=== PATIENT | male | born 1960 | race Caucasian/White ===

== ENCOUNTER 2023-08-08 06:19 | Inpatient (IN) | payer BC, MEDICARE, SELFPAY ==
[2023-08-08] VITALS (12 sets, daily range): BP systolic 79–127; BP diastolic 39–80; BMI 36.8
[2023-08-08] MEDS: NSS 500 IV (06:43)
--- NOTE | 2023-08-08 06:56 | W.SUR.PREOP ---
Pre-Operative Surgical Note
-
I have examined this patient prior to the performance of the scheduled procedure.
The patient's condition is unchanged from the time of the current History and
Physical and the patient is able to undergo the scheduled procedure.
[2023-08-08] MEDS: PERIDEX 0.12% ORAL RINSE 15 ML PO (07:09)
[2023-08-08] MEDS: BACTROBAN 2% OINTMENT 1 APPLIC NASAL (07:09)
[2023-08-08 07:17] LABS: Hematocrit 42.5 % (39.0-52.0); Hemoglobin 14.8 g/dL (13.0-18.0); Mean Corp Hgb Conc. 34.8 g/dL (33.0-37.0); Mean Corpuscular Hgb 31.4 pg (27.0-31.0); Mean Corpuscular Volume 90.2 fL (80.0-94.0); Mean Platelet Volume 9.2 fL (7.4-10.4); Platelet Count 160 10^3/uL (130-400); Red Blood Cell Count 4.71 10^6/uL (4.70-6.10); Red Cell Dist. Width 12.5 % (11.5-14.5); White Blood Cell Count 7.4 10^3/uL (4.8-10.8)
[2023-08-08 07:19] LABS: INR 1.04; PT 13.4 Sec (11.4-14.6)
[2023-08-08 07:20] LABS: APTT 25.6 Sec (23.4-35.0); Blood Urea Nitrogen 27 mg/dl (9-20); Calcium 9.6 mg/dl (8.4-10.2); Carbon Dioxide 24 mmol/L (22-30); Chloride 109 mmol/L (98-107); Estimated Creatinine Clearance > 125 ml/min; Glucose 189 mg/dl (70-99); Potassium 4.3 mmol/L (3.5-5.1); Sodium 138 mmol/L (135-145); eGFR > 60.00
--- NOTE | 2023-08-08 10:04 | W.SUR.POST ---
Surgical Immediate Post Op
Note
Pre Op Diagnosis: Carotid stenosis
Post Op Diagnosis: Carotid stenosis
Procedure Performed: Left carotid endarterectomy with bovine pericardial patch angioplasty and EEG/SSEP monitoring
Primary Surgeon: Jorge A Sneed MD
printing assistant: PHI Mei
Anesthesia: GETA
Estimated Blood Loss: 100 mL
Fluids: See anesthesia flowsheet
Drains/Shunts: N/A
Specimens/Cultures: Left carotid plaque
Doppler/Duplex/Angio (Y/N): Y
Complications: None
Operative Findings: Upon waking from anesthesia could move bilateral upper extremities and lower extremities to command and spontaneously
--- NOTE | 2023-08-08 10:06 | W.PV.INTER ---
VPI Note
Pre Admission Note
Functional Status: Full
Ambulation: Ambulate Independently
Pre Op Medications
Pre Op ASA: Yes
Pre Op Statin: Yes
Pre Op MIKAYLA Inhibitor/ARB: No
Pre Op P2y12 Antagonist: Clopidogrel
Pre Op Beta Blockers: Pre Op 1-30 Days
Pre Op Chronic Anticoagulant: None
Pre Op Cilostazol: No
Post Op Medications
Post Op ASA: Yes
Post Op Statin: Yes
Post Op MIKAYLA Inhibitor/ARB: No
Post Op P2y12 Antagonist: Clopidogrel
Post Op Beta Blockers: Chronic > 30 Days
Post Op Chronic Anticoagulant: None
Post Op Cilostazol: No
Modified [place]
Pre Op: 0
Post Op: 0
[2023-08-08 10:33] LABS: Glucose - Point of Care 194 mg/dl (70-99)
[2023-08-08] MEDS: NSS 1000 IV ×2 (10:43→21:30)
[2023-08-08] MEDS: NEO-SYNEPHRINE 250 IV (10:43)
[2023-08-08 10:51] LABS: Hematocrit 39.5 % (39.0-52.0); Hemoglobin 13.7 g/dL (13.0-18.0); Mean Corp Hgb Conc. 34.7 g/dL (33.0-37.0); Mean Corpuscular Hgb 31.5 pg (27.0-31.0); Mean Corpuscular Volume 90.8 fL (80.0-94.0); Mean Platelet Volume 9.1 fL (7.4-10.4); Platelet Count 154 10^3/uL (130-400); Red Blood Cell Count 4.35 10^6/uL (4.70-6.10); Red Cell Dist. Width 12.6 % (11.5-14.5)
[2023-08-08 11:00] LABS: Blood Urea Nitrogen 22 mg/dl (9-20); Estimated Creatinine Clearance > 125 ml/min; Glucose 212 mg/dl (70-99); Sodium 136 mmol/L (135-145); eGFR > 60.00
[2023-08-08 11:01] LABS: Calcium 8.5 mg/dl (8.4-10.2); Carbon Dioxide 23 mmol/L (22-30); Chloride 110 mmol/L (98-107); Potassium 4.2 mmol/L (3.5-5.1)
[2023-08-08 12:24] LABS: Glucose - Point of Care 236 mg/dl (70-99)
[2023-08-08] MEDS: NOVOLOG FLEXPEN-LOW RESISTANCE 2 UNITS SC ×2 (13:17→16:56)
--- NOTE | 2023-08-08 13:36 | CON.INTV ---
Consultation
Consultation Request
Date/Time Consultation Requested: 08/08/2023
Date/Time Consultation Performed: 08/08/2023
Requesting Provider: Dr. Sneed
Performing Provider: Dr. Dario Asencio
Reason for Consultation: Status post left carotid endarterectomy.
Medical History
-
History of Present Illness:
[age]-year-old man who was diagnosed with left carotic stenosis. It was symptomatic. He was deemed candidate for revascularization. Admitted to the hospital and he underwent left carotic endarterectomy without complication.
In the critical care unit for postoperative management.
Past Medical History
Past Medical History: Other (See assessment and plan section)
Social History
Tobacco: Former Smoker
Alcohol: None
Drug: None
Living: With Family
Family History
Family History: Reviewed & Not Pertinent
Allergies / Home Medications
Allergies
Allergy/AdvReac Type Severity Reaction Status Date / Time
No Known Allergies Allergy Unverified 08/07/23 11:39
Home Medications
�Medication �Instructions �Recorded �Confirmed �Last Taken �Type
Fish Oil 1 cap PO DAILY 08/07/23 08/08/23 08/08/23 05:00 History
Lipitor 40 mg PO DAILY 08/07/23 08/08/23 08/08/23 05:00 History
clopidogrel 75 mg tablet (Plavix) 75 mg PO DAILY 08/07/23 08/08/23 08/08/23 05:00 History
empagliflozin 10 mg tablet 10 mg PO DAILY 08/07/23 08/08/23 08/05/23 08:00 History
(Jardiance)
lisinopril 10 mg tablet 10 mg PO DAILY 08/07/23 08/08/23 08/08/23 05:00 History
metformin 500 mg tablet 500 mg PO BID 08/07/23 08/08/23 08/08/23 05:00 History
metoprolol succinate 25 mg 25 mg PO DAILY 08/07/23 08/08/23 08/08/23 05:00 History
tablet,extended release 24 hr
aspirin 81 mg tablet 81 mg PO DAILY 08/08/23 08/08/23 08/08/23 05:00 History
cholecalciferol (vitamin D3) 25 25 mcg PO DAILY 08/08/23 08/08/23 08/08/23 05:00 History
mcg (1,000 unit) chewable tablet
(Vitamin D3)
Review of Systems
-
History Source: Patient
All other systems: Negative unless noted
Vitals / Labs / Diagnostic Testing
Vital Signs
Temp Pulse Resp BP Pulse Ox
98.3 F 61 24 109/69 96
08/08/23 12:31 08/08/23 13:30 08/08/23 13:30 08/08/23 12:56 08/08/23 13:30
Lab Data
08/08/23 10:40
08/08/23 10:40
Laboratory Results
08/08/23
06:33
PT 13.4
INR 1.04
APTT 25.6
Diagnostic Testing:
Physical Exam
-
HEENT: Normocephalic and Other (Cervical incision is intact. No stridor. No hematoma.)
Cardiovascular: S1/S2
Respiratory: Clear and Non-Labored Respirations
GI: Soft and Non Distended
Neurology: Awake and Alert
Skin: Warm
General: Respiratory Distress (n)
Assessment
-
Status post Left carotid endarterectomy with bovine pericardial patch angioplasty and EEG/SSEP monitoring-08/08/2023-Dr. Sneed
Conditions present prior admission:
Hypertension type 2 diabetes
TIA
Hyperlipidemia
Former smoker-quit at age 48. Smoked from age 16 to age 48. On average 1-2 packs/day
Assessment and plan:
Postoperative surgical intensive care unit monitoring
Supplemental oxygen as needed
Incentive spirometry
Aspiration precautions
Neuro and vascular checks per protocol
Vascular surgery following-correspondence and operative notes reviewed
Antiplatelet
Monitor blood pressure
Arterial line in place
Restart outpatient blood pressure medications.
Cardene drip if needed
Follow hemoglobin
Complaining of left antecubital pain on peripheral line. No obvious hematoma
Will discontinue right arm peripheral line.
Switch IV fluids to the left arm.
Follow blood sugars
Insulin supplementation as needed
Restart outpatient medication
Advance diet as tolerated
Gentle IV fluids
DVT prophylaxis
Early nutrition
Early mobilization
--- NOTE | 2023-08-08 13:38 | PTCARENOTE ---
Received pt from PACU s/p L CEA. Neuro checks as ordered WNL. Phenylephrine stopped upon arrival. L neck CDI with mild erythema, approximated with dermabond. NSS infusing. a-line zeroed and leveled. Plan of care discussed.
--- NOTE | 2023-08-08 13:47 | SUR.PHASEI ---
late charting - patient received easily arousable, neuro intact despite low BP, treated by FIELD UNDERWRITER and BP recovered nicely - BP dropping again and meka gtt started and held at 20 mcg, vss, then stable, c/o chest burning, ECG completed, Dr Antonio to
view. no treatement.
--- NOTE | 2023-08-08 14:13 | OR.RPT ---
Operative Report
Operative Report
PROCEDURE DATE: 08/08/2023
Preoperative diagnosis: Symptomatic severe left carotid artery stenosis.
Postoperative diagnosis: Same
Procedure: Left carotid endarterectomy with bovine pericardial patch angioplasty and intraoperative EEG/SSEP monitoring.
Surgeon: Naren
Resource Paraprofessional: Vannessa, required for all aspects of procedure including traction/countertraction, following of suture line, assistance with closure.
Complications: None
Anesthesia: General
Indications for procedure:
High-grade mixed plaque left carotid stenosis. Symptomatic. Recent TIA event with right upper extremity weakness. In addition had left eye potential amaurosis type findings. Risk/benefit/alternatives of expeditious revascularization were also
discussed. Patient understood all wish to proceed.
Description of procedure:
Patient was identified brought to the operating room placed on the table in supine position. After the adequate administration of anesthesia and perioperative antibiotics he was prepped and draped in the standard surgical fashion. A standard
preoperative timeout was undertaken and everybody was in agreement the plan. A standard longitudinal incision was made in the left neck that was carried through the skin subcutaneous tissue. Using the electrocautery dissection was carried through
the platysma muscle layer and then alongside the anterior medial border of the sternocleidomastoid muscle. Then using a combination of sharp dissection with the Metzenbaum scissors and electrocautery I dissected along the anterior medial border of
the internal jugular vein. A small common facial vein branch was ligated between silk ties and then divided. I then deepened my retraction. The common carotid artery was fairly deep, but was identified and carefully dissected away from the
surrounding structures take great care to avoid any injury to the structures. A vessel loop was passed around it which was double looped, but not yet tightened. Note the vagus nerve was protected from harm's way. I then continued my dissection up
the common carotid artery to the bulb staying only on the anterior surface of the carotid artery. Then I carried the dissection up to the internal carotid artery and then to the distal internal carotid artery. I identified where it was soft and
carefully circumferentially dissected the internal carotid artery with minimal mobilization and passed a vessel loop around it. Note the hypoglossal nerve was not directly visualized and was felt to be more cephalad. The patient was given an
appropriate dose of heparin 10,000 units. Next I dissected the anterior surface of the external carotid artery and superior thyroid branches. These were then carefully dissected on their anterior surfaces with minimal mobilization. After 3
minutes of heparin circulation time and confirmation of optimization of the blood pressure with my anesthesiology colleagues, I clamped the distal internal carotid artery where it was soft. There was no immediate EEG or SSEP changes. After 1
minute of test clamp time there was no changes noted. Therefore at this point, I completed circumferential dissection of the external carotid and superior thyroid branches, and Vesseloops were passed and double looped and tightened. Next, the
common carotid artery was clamped where it was soft proximally. An arteriotomy was made on the common carotid artery with an 11 blade and extended using a Baldwin scissor. I extended the arteriotomy onto the mid to distal internal carotid artery.
There was mixed plaque as noted on CT scan that resulted in significant stenosis. It was a somewhat friable plaque. Appeared to be the source of his recent TIA.. A Orlando was then used to endarterectomized the plaque. An endarterectomy plane was
created, and the plaque was then endarterectomized. Distally I feathered the plaque out to a nice clean endpoint in the distal internal carotid artery. Next I endarterectomized the intima back to somewhat normal intima in the common carotid
artery, and the intima was cut flush there. I then grasped the plaque and everted plaque out of the origin of the external carotid artery. The plaque was then sent off for specimen. The origin of the external carotid artery was carefully
visualized and any fine debris were removed with fine forceps. Proximal and distal endpoints were then carefully inspected. The distal endpoint appeared reasonable. Proximal endpoint continued to have friable plaque debris/intima. I therefore
had to dissect more proximally on the common carotid artery, and shift my clamp more proximally. I extended the arteriotomy more proximally as well. I then was able to get to a kiln cleaner endpoint on the common carotid artery. The intima at the
proximal and distal endpoints were tacked with 7-0 Prolene suture interrupted. Next any fine debris were removed throughout the endarterectomy bed with fine forceps. I then flushed heparinized saline. I was very satisfied. Then, I used a bovine
pericardial patch to sew a patch angioplasty with a running 6-0 Prolene suture. Prior to completing and tying down my suture line, I backbled sequentially each branch and reclamped each branch prior to unclamping the next branch. I then irrigated
with heparinized saline. Then I completed and tied down my suture line. We then restored flow in the common carotid and external carotid arteries. Finally, we released flow in the internal carotid artery. There was excellent pulsatile flow in
all 3 vessels. There was an excellent Doppler signal in the internal carotid artery distal to the patch with a good normal low resistance Doppler signal. There was a good Doppler signal in the external carotid artery as well. 6-0 Prolene
[id number] sutures were placed along any bleeding points along the suture line. Protamine was given to reverse the heparin. Hemostasis was completely achieved. We then irrigated and confirmed full hemostasis. I then closed in layers with
2-0 Vicryl layer to reapproximate the sternocleidomastoid muscle, followed by 3-0 Vicryl platysma muscle running layer, followed by 4 Monocryl subcuticular stitch. Dermabond was applied. The patient tolerated procedure well. He awoke moving all
extremities to command with tongue in the midline.
[2023-08-08 14:48] LABS: Troponin I < 0.012 ng/ml
--- NOTE | 2023-08-08 16:46 | PTCARENOTE ---
VSS with phenylephrine off. Neuro checks WNL. Continues to ice incision intermittently.
[2023-08-08 16:51] LABS: Glucose - Point of Care 221 mg/dl (70-99)
[2023-08-08 20:22] LABS: Troponin I < 0.012 ng/ml
[2023-08-08 21:25] LABS: Glucose - Point of Care 226 mg/dl (70-99)
[2023-08-08] MEDS: HEPARIN 5000 UNITS SC (21:30)
--- NOTE | 2023-08-08 21:43 | PTCARENOTE ---
Pt resting comfortably with no c/o pain. Ice pack PRN left neck. Pt continuously trying to get up to side of bed without assistance despite education. Bed alarm on. Pt alert/oriented X3, PERRLA 3, SCHROEDER 08/11. Will monitor.
[2023-08-08] MEDS: NOVOLOG FLEXPEN 5 UNITS SC (21:54)
[2023-08-09 04:22] LABS: Hematocrit 34.1 % (39.0-52.0); Hemoglobin 11.9 g/dL (13.0-18.0); Mean Corp Hgb Conc. 34.9 g/dL (33.0-37.0); Mean Corpuscular Hgb 31.8 pg (27.0-31.0); Mean Corpuscular Volume 91.2 fL (80.0-94.0); Mean Platelet Volume 9.6 fL (7.4-10.4); Platelet Count 128 10^3/uL (130-400); Red Blood Cell Count 3.74 10^6/uL (4.70-6.10); Red Cell Dist. Width 12.7 % (11.5-14.5); White Blood Cell Count 10.5 10^3/uL (4.8-10.8)
[2023-08-09 04:34] LABS: INR 1.15; PT 14.8 Sec (11.4-14.6)
[2023-08-09 04:35] LABS: APTT 25.3 Sec (23.4-35.0)
[2023-08-09 04:52] LABS: Blood Urea Nitrogen 24 mg/dl (9-20); Calcium 8.1 mg/dl (8.4-10.2); Carbon Dioxide 20 mmol/L (22-30); Chloride 110 mmol/L (98-107); Estimated Creatinine Clearance > 125 ml/min; Glucose 173 mg/dl (70-99); Potassium 3.7 mmol/L (3.5-5.1); Sodium 135 mmol/L (135-145); eGFR > 60.00
--- NOTE | 2023-08-09 07:23 | W.PN.VS ---
Addendum entered and electronically signed by Jorge A Sneed MD 08/09/23 08:53:
Seen and examined with FUEL CELL TEST ENGINEER. Agree with findings as noted below. Patient without complaints. Feels well. Left neck incision is clean dry and intact, no hematoma. Neurologically no focal deficits, moves all extremities well, tongue midline.
Plan/as discussed and noted below.
Original Note:
Today's Communication / Plan
-
Patient seen and examined at bedside with Dr. Jorge A Sneed, below plan reviewed with attending.
Assessment/Plan
-
Assessment: 63 year old male POD#1 Left CEA
Plan:
Discontinue IV fluids
Discontinue arterial line
OOB to chair with progression to ambulation as tolerated
Continue statin and antiplatelet of Aspirin 81mg po daily
Possible d/c later this afternoon if continues to progress well
Subjective Data
-
Date of Service: August 09, 2023
Patient seen and examined at bedside, offers no complaints. Denies nausea, vomiting, fever, chills, headache, dysphagia, or unilateral weakness. Tolerating PO diet.
Objective Data
-
Vital Signs
Temp Pulse Resp BP Pulse Ox
98.1 F 48 23 109/69 99
08/09/23 03:31 08/09/23 05:45 08/09/23 05:45 08/08/23 12:56 08/09/23 05:45
Intake and Output
08/08/23 08/09/23 08/10/23
06:59 06:59 06:59
Intake Total 1950 / 1950
Output Total 1400 / 1400
Balance 550 / 550
Intake:
Oral fluids 20 / 20
IV fluids (Total) 1929
NSS 1929
Output:
Urine, Voided 1400 / 1400
Other:
Number of approximated MODERATE 1
amounts of urine
Number of approximated LARGE 1
amounts of urine
Lab Results
08/09/23 04:06
08/09/23 04:06
Calcium 8.1 mg/dl (8.4-10.2) L 08/09/23 04:06
Physical Exam
-
AAOx3, NAD
Facial symmetry left neck incision CDI, no edema, no hematoma
No tachycardia
No dyspnea
Moves BL UE and LE to command and spontaneously
[2023-08-09 07:26] VITALS: BP 110/57
[2023-08-09 07:35] LABS: Glucose - Point of Care 198 mg/dl (70-99)
[2023-08-09] MEDS: ZESTRIL 10 MG PO (07:43)
[2023-08-09] MEDS: LOW STRENGTH ASPIRIN 81 MG PO (07:43)
[2023-08-09] MEDS: LIPITOR 40 MG PO (07:43)
[2023-08-09] MEDS: GLUCOPHAGE XR EXTENDED RELEASE 500 MG PO (07:44)
[2023-08-09] MEDS: JARDIANCE 10 MG PO (07:44)
[2023-08-09] MEDS: VITAMIN D3 (cholecalciferol) 25 MCG PO (07:45)
[2023-08-09] MEDS: PLAVIX 75 MG PO (07:45)
[2023-08-09] MEDS: HEPARIN SC (07:45)
--- NOTE | 2023-08-09 07:57 | PTCARENOTE ---
Received patient from clay burner. Patient AAOx4. Standing at bedside, Dr. Sneed also in room, discontinued A line. patient is on room air, lungs clear, 97%. Patient is in a sinus bradycardia on monitor. No edema noted. heparin for dvt
prophalaxis, as patient is ambulating in room, he declined 0800 dose. Patient will order breakfast, blood sugar check was 198, declined 1unit of insulin. Uses urinal to void. Skin is intact except for left neck incision, skin glue, approximated.
denies pain. Due to discharge this afternoon. will review orders.
[2023-08-09 09:15] LABS: Glycohemoglobin (HgbA1c) 7.5 % (4.0-5.6)
[2023-08-09 09:43] VITALS: BP 99/59
--- NOTE | 2023-08-09 11:14 | W.PN.INTV ---
Today's Communication / Plan
Recommendations
Continue postoperative care
Discharge planning
Assessment
-
Status post Left carotid endarterectomy with bovine pericardial patch angioplasty and EEG/SSEP monitoring-08/08/2023-Dr. Sneed
Conditions present prior admission:
Hypertension type 2 diabetes
TIA
Hyperlipidemia
Former smoker-quit at age 48. Smoked from age 16 to age 48. On average 1-2 packs/day
Assessment and plan:
Doing well postoperative day 1
Pain is controlled
Incision is intact without stridor
Out of bed hemodynamically stable
Neuro and vascular checks per protocol
Vascular surgery following-correspondence and operative notes reviewed
Continue antiplatelets per
Restart outpatient blood pressure medication
Follow blood sugars
Insulin supplementation as needed
Continue outpatient medication.
Tolerating diet
IV fluids have been discontinued
DVT prophylaxis
Hopefully discharge later today.
If discharged, critical care team will sign off. If patient not discharged transferred to telemetry.
Subjective Dataa
Subjective Data
Date of Service:
Date of Service: August 09, 2023
Chief Complaint: Medical Physics Teacher Follow Up (Status post left carotid endarterectomy.)
Subjective:
Patient denies any complaints from
Review of Systems
General: Fever
Cardiopulmonary: Dyspnea
Neuro: Headache (n), Dizziness (n), Numbness (n) and Weakness (n)
Objective Data
Data Reviewed
Vital Signs / I&O / Oxygen:
Vital Signs
Temp Pulse Resp BP Pulse Ox
98.1 F 60 23 99/59 95
08/09/23 07:45 08/09/23 09:45 08/09/23 09:45 08/09/23 09:43 08/09/23 09:15
Intake and Output
08/08/23 08/09/23 08/10/23
06:59 06:59 06:59
Intake Total 1950 / 2400 900 / 900
Output Total 1400 / 1400
Balance 550 / 1000 900 / 900
SaO2 95
Nasal Cannula flow liters per 2
minute
Physical Exam
General: Respiratory Distress (n) and Comfortable
HEENT: Normocephalic and Other (Cervical incision is intact.)
Cardiovascular: S1-S2 and Regular Rhythm
Respiratory: Clear and Non-Labored Respirations
GI: Soft and Non Distended
Neurology: Awake, Alert and Oriented
Labs/Micro/Reports
Lab Data
08/09/23 04:06
08/09/23 04:06
Laboratory Results
08/09/23
04:06
PT 14.8 H
INR 1.15
APTT 25.3
[2023-08-09 11:15] VITALS: BP 113/62
--- NOTE | 2023-08-09 11:26 | PN.CDI ---
CDI
- -
CDI:
Physician Documentation Request
Admit Date: 08/08/23 06:19
Dear Vascular,
Please review the following and provide your response in the progress notes.
Clinical Indicators:
- 08/07 Post Op Note EBL 100mL
- 08/07 2.5L IVF given
Laboratory Tests
08/08/23 08/08/23 08/09/23
06:33 10:40 04:06
Hgb 14.8 13.7 11.9 L
Please clarify the appropriate diagnosis that supports the above lab abnormalities and additional evaluation, monitoring and/or treatment rendered:
Anemia, due to acute blood loss and hemodilution
Anemia due to hemodilution only
Clinically insignificant abnormal lab values
Other
Use of terms such as suspected, likely, concern for, or probable (associated with a specific diagnosis that is being evaluated, monitored, or treated as if it exists) are acceptable and can be coded in the inpatient setting, when documented at the
time of discharge.
Thank you,
Callie Zavala RN
CDI Specialist
Please use your independent medical judgment in providing your response.
--- NOTE | 2023-08-09 11:30 | CM ---
CM following re: discharge planning.
Reviewed pt's chart, met with pt.
Pt is a 63 year old male, admitted with primary dx of POD#1 Left CEA. Per vascular surgery pt will likely be discharged home today. Pt is aware, expressed his agreement with discharge. Pt has Medicare as secondary, IMM reviewed, placed in chart, pt
has a copy.
Pt reports he lives with spouse in a 2SH, 4 steps to enter, has no children. pt described himself as independent in all areas [employer]OM[employer]OUN[employer], drives, works.
[facility]: [facility]
D/C plan: home no needs. spouse to transport.
[2023-08-09 11:38] LABS: Glucose - Point of Care 182 mg/dl (70-99)
[2023-08-09 11:53] VITALS: BP 108/71
--- NOTE | 2023-08-09 12:36 | W.DS.TRANS ---
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
-
Discharge Instructions:
Discharge Diagnosis/Procedures Left carotid stenosis
Diet As tolerated,Low Cholesterol,Diabetic, Carb
Controlled
Activity No strenuous activity
Driving Restrictions Not until seen by your Dr
Bathing Restrictions OK to Shower
Instructions:
Stand-Alone Forms:
Changes to Home Medications: No
Discharge Medications:
DC Medications w/original date entered in [employer]
Fish Oil 1 cap PO DAILY Supplement 08/07/23
clopidogrel 75 mg tablet (Plavix) 75 mg PO DAILY Blood Clot Prevention/Tx 08/07/23
empagliflozin 10 mg tablet (Jardiance) 10 mg PO DAILY Diabetes 08/07/23
lisinopril 10 mg tablet 10 mg PO DAILY Blood Pressure 08/07/23
metoprolol succinate 25 mg tablet,extended release 24 hr 25 mg PO DAILY Heart Disease/Condition 08/07/23
aspirin 81 mg tablet 81 mg PO DAILY Blood Clot Prevention/Tx 08/08/23
atorvastatin 40 mg tablet 40 mg PO DAILY High Cholesterol 08/08/23
cholecalciferol (vitamin D3) 25 mcg (1,000 unit) chewable tablet (Vitamin D3) 25 mcg PO DAILY Supplement 08/08/23
metformin 500 mg tablet,extended release 24 hr 500 mg PO BID Diabetes 08/08/23
Home Medication Changes
Pending Results: No
--- NOTE | 2023-08-09 13:03 | W.PN.UPDATE ---
Update Note
Progress Note Update
In response to CDI:
Clinical Indicators:
- 08/07 Post Op Note EBL 100mL
- 08/07 2.5L IVF given
Laboratory Tests
08/08/23 08/08/23 08/09/23
06:33 10:40 04:06
Hgb 14.8 13.7 11.9 L
Please clarify the appropriate diagnosis that supports the above lab abnormalities and additional evaluation, monitoring and/or treatment rendered:
Anemia, due to acute blood loss and hemodilution
--- NOTE | 2023-08-10 13:31 | W.DCSUMMARY ---
Discharge Summary
Discharge Data
Date of Admission: 08/08/23
Date of Discharge: 08/09/23
-
Pending Results: No
Hospital Course
Attending: Naren
Consultants: Pulmonary medicine
Allergies: NKDA
Procedure with date: 08/08/2023: Left carotid endarterectomy with bovine pericardial patch angioplasty and EEG monitoring
History of present illness: The patient is an 63-year-old male with multiple medical conditions including: carotid stenosis, hypertension, diabetes, TIA, hyperlipidemia, aortic valve replacement. Patient presented on 08/08/2023 for scheduled procedure
with Dr. Sneed. Patient presented at baseline health with no reports of recent illness or trauma.
Hospital Course: Briefly, the patient underwent scheduled CEA without complications, and recovered in PACU. Following recovery phase one and two patient was transferred to intensive care unit per protocol for continued hemodynamic monitoring.
Wrapper Sheeter consulted to aid in medical management from a critical care perspective. POD #1 (08/09/2023) Patient neurologically intact, face symmetrical, and tolerating PO diet. Surgical
Clean, dry, and intact with suture line well approximated and soft. No evidence of hematoma. Arterial line and IV fluids discontinued. Patient able to ambulate without difficulty or incident. Patient stable for discharge to home.
Prescriptions and follow up appointment are included in the DC summary automation consultant note. All instructions were given to the patient in both written and verbal form and the patient expressed understanding.
Discharge Plan
-
Patient Disposition: Home (Routine Discharge)
Discharge Diagnosis/Procedures: Left carotid stenosis
Condition: Good
Diet: As tolerated, Low Cholesterol and Diabetic, Carb Controlled
Activity: No strenuous activity
Driving Restrictions: Not until seen by your Dr
Bathing Restrictions: OK to Shower
Activity Restrictions/Additional Instructions:
If you experience severe constant headache, weakness to an arm or leg, change in vision, trouble speaking or any stroke-like symptom, call 911 immediately
If you experience swelling, increased bruising, drainage from neck site, or fever, please call the office
Referrals:
UNKNOWN - PT NOT,INTERVIEWE [Family Provider] -
Rocio Mcarthur CRNP [Specified Professional Personl] - 08/23/23 9:45 am (Vascular follow up )
Prescriptions:
Continued
clopidogrel [Plavix] 75 mg Tablet
75 mg PO DAILY
lisinopril 10 mg Tablet
10 mg PO DAILY
metoprolol succinate 25 mg Tablet Extended Release 24 Hr
25 mg PO DAILY
Jardiance 10 mg Tablet
10 mg PO DAILY
Fish Oil
1 cap PO DAILY
aspirin 81 mg Tablet
81 mg PO DAILY
cholecalciferol (vitamin D3) [Vitamin D3] 25 mcg (1,000 unit) Tablet,Chewable
25 mcg PO DAILY
atorvastatin 40 mg Tablet
40 mg PO DAILY
metformin 500 mg Tablet Extended Release 24 Hr
500 mg PO BID
Discharge Orders:
Discharge Patient (As Directed); Ordered 08/09/23
Ordered By: Kamilah Hurd
Discharge Date and Time
Discharge Date/Time: 08/09/23 13:15
Print Language: NIGERIEN
== END 2023-08-09 13:15 | disposition home or self-care (01) | DRG 38 ==
LOC: ICU 06:19
PROVIDERS: Nurse Practitioner; Nurse Practitioner Acute Care; ADMITTING PHYSICIAN Surgery Vascular Surgery; CONSULT PHYSICIAN Internal Medicine Critical Care Medicine; PRIMARYCARE PHYSICIAN Family Medicine
PROC: 03CJ0ZZ Extirpation of Matter from Left Common Carotid Artery, Open Approach (ICD-10-PCS; 2023-08-08)
PROC: 04UL0KZ Supplement Left Femoral Artery with Nonautologous Tissue Substitute, Open Approach (ICD-10-PCS; 2023-08-08)
DX: I65.22 Occlusion and stenosis of left carotid artery (principal); D62 Acute posthemorrhagic anemia; Z86.73 Personal history of transient ischemic attack (TIA), and cerebral infarction without residual deficits; I10 Essential (primary) hypertension; E11.9 Type 2 diabetes mellitus without complications; E78.5 Hyperlipidemia, unspecified; Z87.891 Personal history of nicotine dependence
CPT/HCPCS: 88304; 88311; 35301; 80048; 82962; 83036; 84484; 85027; 85610; 85730; 86850; 86900; 86901; 93005; 95938; 95941

== ENCOUNTER → 2023-09-24 09:58 | Outpatient (REF) | payer BC, MEDICARE, SELFPAY | LOC: RAD 09:58 | PROVIDERS: ATTENDING PHYSICIAN Registered Nurse; FAMILY PHYSICIAN Family Medicine; REFERRING PHYSICIAN Family Medicine | DX: I65.22 Occlusion and stenosis of left carotid artery (principal); I72.0 Aneurysm of carotid artery | CPT/HCPCS: 93880 ==

== ENCOUNTER → 2024-04-07 13:12 | Outpatient (REF) | payer MEDICARE, SELFPAY | LOC: RAD 13:12 | PROVIDERS: ATTENDING PHYSICIAN Surgery Vascular Surgery | DX: I65.22 Occlusion and stenosis of left carotid artery (principal); I72.0 Aneurysm of carotid artery | CPT/HCPCS: 93880 ==

== ENCOUNTER → 2024-10-14 07:49 | Outpatient (REF) | payer MEDICARE, OTHER, SELFPAY | LOC: RAD 07:49 | PROVIDERS: ATTENDING PHYSICIAN Registered Nurse; FAMILY PHYSICIAN Family Medicine | DX: I65.22 Occlusion and stenosis of left carotid artery (principal) | CPT/HCPCS: 70496; 70498; Q9967 ==